=== PATIENT | male | born 1975 | race Two or more races ===

== ENCOUNTER 2025-01-20 16:46 | Emergency (ER) | payer MEDICAID ==
[~2025-01-20] VITALS: Ht 182.9 cm; Wt 172.3 kg
--- NOTE | 2025-01-20 18:51 | ED.PDOC ---
HPI (NEURO) HPI Comments 49 Year-old Male accompanied by presents to the ED with the c/c of Dizziness. Pt states that he took a nap earlier today, when he had the sudden urge to go to the bathroom. Upon trying to stand up pt states that the room started "shaking violently out of no where". Pt notes that Dizziness worsens with head movement, and feels as if you cannot stand/walk. Pt Denies fever, chills, coughing, /D, SOB, Chest pain, or other associated symptoms, modifiers, or recent injuries or sick contact that this time. Chief Complaint: Dizziness Time Seen by MD: 18:46 Primary Care Provider: RAYMOND Tanner Notes: Nurses Notes, Medications, Allergies Information Source: Patient Mode of Arrival: EMS Severity: Moderate Headache Severity: Mild Timing: Minutes Duration: Since onset Prehospital treatment: None Onset: At rest Circumstances: Spontaneous Symptoms: Vertigo Before: Normal During: Awake History of: DM, Hypertension Modifying factors: Nothing Associated Signs and Symptoms: Nausea, Vomiting Past Medical History PAST MEDICAL HISTORY: DM, High Lipids, HTN Surgical History (Other): Stents Family History Family History: Unknown Social History Smoker: Non-Smoker Alcohol: Denies ETOH Use Drugs: Denies Drug Use Lives In: Home Constitutional: denies: chills, diaphoresis, fatigue, fever, malaise, sweats, weakness, others EENTM: denies: blurred vision, double vision, ear bleeding, ear discharge, ear drainage, ear pain, ear ringing, eye pain, eye redness, hearing loss, mouth pain , mouth swelling, nasal discharge, nose bleeding, nose congestion, nose pain, photophobia, tearing, throat pain, throat swelling, voice changes, others Respiratory: denies: cough, hemoptysis, orthopnea, SOB at rest, shortness of breath, SOB with excertion, stridor, wheezing, others Cardiovascular: denies: chest pain, dizzy spells, diaphoresis, Dyspnea on exertion, edema, irregular heart beat, left arm pain, lightheadedness, palpitations, PND, syncope, others Gastrointestinal: denies: abdomen distended, abdominal pain, blood streaked bowels, constipated, diarrhea, dysphagia, difficulty swallowing, hematemesis, melena, nausea, poor appetite, poor fluid intake, rectal bleeding, rectal pain, vomiting, others Genitourinary: denies: burning, dysuria, flank pain, frequency, hematuria, incontinence, penile discharge, penile sore, pain, testicle pain, testicle swelling, urgency, others Neurological: reports: dizziness; denies: fainting, headache, left sided numbness, left sided weakness, numbness, paresthesia, pre-existing deficit, right sided numbness, right sided weakness, seizure, speech problems, tingling, tremors, weakness, others Musculoskeletal: denies: back pain, gout, joint pain, joint swelling, muscle pain, muscle stiffness, neck pain, others Integumetry: denies: bruises, change in color, change in hair/nails, dryness, laceration, lesions, lumps, rash, wounds, others Allergic/Immunocompromised: denies: Difficulty Healing, Frequent Infections, Hives, Itching, others Hematologic/Lymphatic: denies: anemia, blood clots, easy bleeding, easy bruising, swollen glands, others Endocrine: denies: excessive hunger, excessive sweating, excessive thirst, excessive urination, flushing, intolerance to cold, intolerance to heat, unexplained weight gain, unexplained weight loss, others Psychiatric: denies: anxiety, bipolar disorder, depression, hopeless, panic disorder, schizophrenia, sleepless, suicidal, others All Other Systems: Reviewed and Negative Physical Exam General Appearance: No Apparent Distress, Obese HEENT: Normal ENT Inspection, Pharynx Normal, TMs Normal Neck: Full Range of Motion, Non-Tender, Normal, Normal Inspection Respiratory: Chest Non-Tender, Lungs Clear, No Accessory Muscle Use, No Respiratory Distress, Normal Breath Sounds Cardiovascular: No Edema, No JVD, No Murmur, No Gallop, Normal Peripheral Pulses, Regular Rate/Rhythm Breast Exam: Deferred Gastrointestinal: No Organomegaly, Non Tender, No Pulsatile Mass, Normal Bowel Sounds, Soft Genitalia: Deferred Pelvic: Deferred Rectal: Deferred Extremities: No calf tenderness, Normal capillary refill, Normal inspection, Normal range of motion, Non-tender, No pedal edema Musculoskeletal : Apperance: Normal Neurologic: Alert, gold burnisher II-XII nml as Tested, No Motor Deficits, Normal Affect, Normal Mood, No Sensory Deficits Cerebellar Function: Normal Reflexes: Normal Skin: Dry, Normal Color, Warm Lymphatic: No Adenopathy Was a procedure done? Was a procedure done?: No Differential Diagnosis (SZ) Seizure: N/A CVA: Other (Vertigo,) General Weakness: Dehydration Headache: Migraine X-Ray, Labs, Meds, VS Vital Signs Date Time Temp Pulse Resp B/P (MAP) Pulse Ox O2 Delivery O2 Flow Rate FiO2 01/20/25 17:03 98.2 82 18 149/89 (109) 99 98.2 Lab Test 01/20/25 19:51 01/20/25 18:52 Range/Units Troponin I High Sensitivity < 3 L < 3 L </=54 ng/L White Blood Count 9.4 4.4-10.8 10^3/uL Red Blood Count 5.02 4.5-5.90 10^6/uL Hemoglobin 15.0 13.5-17.5 g/dL Hematocrit 44.0 41.0-53.0 % Mean Corpuscular Volume 87.7 80.0-100.0 fL Mean Corpuscular Hemoglobin 30.0 28.0-32.0 pg Mean Corpuscular Hemoglobin Concent 34.2 32.0-36.0 g/dL Red Cell Distribution Width 13.6 11.8-14.3 % Platelet Count 266 140-450 10^3/uL Mean Platelet Volume 8.1 6.9-10.8 fL Neutrophils (%) (Auto) 78.7 37.0-80.0 % Lymphocytes (%) (Auto) 12.4 10.0-50.0 % Monocytes (%) (Auto) 7.8 0.0-12.0 % Eosinophils (%) (Auto) 0.9 0.0-7.0 % Basophils (%) (Auto) 0.2 0.0-2.0 % Neutrophils # (Auto) 7.4 1.6-8.6 10 ^3/uL Lymphocytes # (Auto) 1.2 0.4-5.4 10 ^3/uL Monocytes # (Auto) 0.7 0-1.3 10 ^3/uL Eosinophils # (Auto) 0.1 0-0.8 10 ^3/uL Basophils # (Auto) 0 0-0.2 10 ^3/uL Nucleated Red Blood Cells 0.0 % Sodium Level 137 136-145 mmol/L Potassium Level 4.7 3.5-5.1 mmol/L Chloride Level 102 98-107 mmol/L Carbon Dioxide Level 24 20-31 mmol/L Anion Gap 11 5-15 Blood Urea Nitrogen 21 9-23 mg/dL Creatinine 0.88 0.700-1.30 mg/dL Glomerular Filtration Rate Calc 107 >90 mL/min BUN/Creatinine Ratio 23.9 H 10.0-20.0 Serum Glucose 195 H 74-106 mg/dL Calcium Level 10.4 8.7-10.4 mg/dL Time of 1ST Reevaluation: 19:24 Reevaluation 1ST: Unchanged Patient Education/Counseling: Diagnosis, Treatment, Prognosis Family Education/Counseling: Diagnosis, Treatment, Prognosis Departure 1 Departure Time of Disposition: 20:52 (Patient likely has vertigo. We will discharge him home with meclizine.) Impression: Primary Impression: Vertigo Disposition: 01 HOME / SELF CARE / HOMELESS Condition: Stable Referrals: ASM CEBALLOS MD Additional Instructions: You likely have vertigo. You were prescribed meclizine. Please take as directed. It is important to follow up with your regular doctor. You were referred to a neurologist. Please call for an appointment. If your symptoms worsen or you have any other concerns please return to the emergency room. e-Prescriptions Meclizine Hcl (Meclizine Hcl) 12.5 Mg Tab 1 TAB PO TID PRN for 7 Days, #21 TAB 3 Refills Prov: TONI POZO MD 01/20/25 Critical Care Note Critical Care Time?: No Stability Stability form required: No I personally scribed for TONI POZO MD ([email or web address]) on 01/20/25 at 18:51. Electronically submitted by Eldon Parks ([email or web address]). TONI POZO MD January 20, 2025 18:51
--- NOTE | 2025-01-20 19:15 | DVH ---
EXAM: XY CHEST PORTABLE CLINICAL HISTORY: dizziness TECHNIQUE: Single AP view of the chest WID: COMPARISON: None FINDINGS: Lines and tubes: None Chest: The heart size and pulmonary vasculature is within normal limits. No pleural effusion, pneumothorax, or consolidation. Linear left basilar scarring or atelectasis. The osseous structures are grossly intact. IMPRESSION: No acute cardiopulmonary abnormality.
[2025-01-20 19:17] LABS: Basophils # (auto) 0 10 ^3/uL (0-0.2); Basophils % (auto) 0.2 % (0.0-2.0); Eosinophils # (auto) 0.1 10 ^3/uL (0-0.8); Eosinophils % (auto) 0.9 % (0.0-7.0); Lymphocytes # (auto) 1.2 10 ^3/uL (0.4-5.4); Lymphocytes % (auto) 12.4 % (10.0-50.0); Mean Corpuscular Hgb Conc. 34.2 g/dL (32.0-36.0); Mean Corpuscular Volume 87.7 fL (80.0-100.0); Monocytes # (auto) 0.7 10 ^3/uL (0-1.3); Monocytes % (auto) 7.8 % (0.0-12.0); Neutrophils # (auto) 7.4 10 ^3/uL (1.6-8.6); Neutrophils % (auto) 78.7 % (37.0-80.0); Platelet Count (auto) 266 10^3/uL (140-450); Red Blood Cells 5.02 10^6/uL (4.5-5.90); Red Cell Distribution Width 13.6 % (11.8-14.3); White Blood Cell 9.4 10^3/uL (4.4-10.8)
[2025-01-20 19:21] LABS: Chloride 102 mmol/L (98-107); Potassium 4.7 mmol/L (3.5-5.1); Sodium 137 mmol/L (136-145)
[2025-01-20 19:22] LABS: Anion Gap 11 (5-15); Carbon Dioxide 24 mmol/L (20-31)
[2025-01-20 19:27] LABS: BUN/Creatinine Ratio 23.9 (10.0-20.0); Blood Urea Nitrogen 21 mg/dL (9-23)
[2025-01-20 19:30] LABS: Calcium 10.4 mg/dL (8.7-10.4); Glucose 195 mg/dL (74-106)
[2025-01-20] MEDS ORDERED: MECL12.586 PO (20:52)
[2025-01-20] MEDS: MECLIZINE HCL 25 MG TAB PO ONE (21:18)
[2025-01-20 21:24] VITALS: BP 141/83; PULSE 75; RESP 20; TEMP 98; O2SAT 96
== END 2025-01-20 21:27 | disposition home or self-care (01) ==
LOC: ER 16:46 → EDBD 16:46 → ER 21:27
DX: R42 Dizziness and giddiness (principal); E11.9 Type 2 diabetes mellitus without complications; I10 Essential (primary) hypertension; E78.5 Hyperlipidemia, unspecified
CPT/HCPCS: 36415; 71045; 80048; 84484; 85025; 99284; J8597